=== PATIENT | female | born 1945 | race Caucasian/White ===

== ENCOUNTER → 2021-05-23 10:00 | Outpatient (CLI) | payer OTHER, SELFPAY ==
[2021-05-23 11:50] LABS: COVID19 -Nasal RAPID Negative (Negative)
== END ==
PROVIDERS: PCP Internal Medicine; Visit Provider Physician Assistant
DX: Z01.812 Encounter for preprocedural laboratory examination (principal); Z20.822 Contact with and (suspected) exposure to COVID-19
CPT/HCPCS: 87635

== ENCOUNTER 2021-05-24 10:40 | Day surgery (SDC) | payer OTHER, SELFPAY ==
[2021-05-19 09:53] VITALS: BMI 20.5
[2021-05-24] VITALS (12 sets, daily range): BP systolic 100–149; BP diastolic 50–82; PULSE 72–87; RESP 12–19; TEMP 35.7–37.3; O2SAT 97–100; BMI 20.5
[2021-05-24] MEDS: CELECOXIB 200 MG CAPSULE PO (11:32)
[2021-05-24] MEDS: ACETAMINOPHEN 325 MG TABLET 975 MG PO (11:32)
[2021-05-24] MEDS: LACTATED RINGERS 1,000 ML 42 ML IV ×2 (11:35→16:28)
--- NOTE | 2021-05-24 13:08 | SUR.PREOP ---
Pt updated on surgical delay. Assisted up to BR. Warm blankets given.
--- NOTE | 2021-05-24 14:00 | DI.RAD.S_ITS ---
PROCEDURE: XR HIP W PEL IF DONE LT 2V INDICATIONS: INNER OP HIP L TECHNIQUE: 2 intraoperative fluoroscopic images of the hip acquired. COMPARISON: [facility], [place], XR PELVIS WITH LATERAL HIP LEFT, 02/09/2021, 14:45. FINDINGS: Intraoperative fluoroscopic images of left hip shows left total hip arthroplasty with anatomic left hip alignment. IMPRESSION: Fluoro guidance was provided intraoperatively for left total hip arthroplasty. Dictated by: Lisandro Dong M.D. on 05/24/2021 at 17:20 Approved by: Lisandro Dong M.D. on 05/24/2021 at 17:21
--- NOTE | 2021-05-24 14:00 | PM.PREOP ---
Pre-operative Note COVID-19 COVID-19 status: Negative Interval Note History & Physical reviewed/Exam performed by Physician: Yes Changes to H&P: No
--- NOTE | 2021-05-24 14:01 | P.OP_ITS ---
Operative Date/Time/Diagnoses Date of procedure: 05/24/21 Time of procedure: 14:45 Pre-op diagnosis: left hip OA Post-op diagnosis: same Procedure & Clinicians Procedure: Left total hip anterior approach Same procedure as scheduled: Yes Indications: The patient has had progressively worsening left hip pain with radiographic changes consistent with arthritis. Non-operative management has failed and the patient has requested total hip replacement. The risks, benefits and alternatives to surgery were discussed with the patient prior to proceeding. Risks discussed included, but were not limited to, failure to relieve pain, leg length discrepancy, dislocation, stiffness, infection, nerve damage, deep venous thrombosis, pulmonary embolism, stroke, coma, heart attack, permanent paralysis and , as well as the potential need for eventual revision of the prosthetic. Surgeon: Leah Bustamante [employer] Teacher: Jorge Guerra Anesthesia Type: General and Spinal Operative Notes Findings: Soft bone, adequate stability Closure Type: primary Specimen(s): none sent Prosthetic devices, grafts, tissues, transplants, or devices: Bustamante and nephew standard anthology size 6, R3 52mm cup, 36 by-3 oxinium head Estimated Blood Loss (mL): 300 Blood products transfused: none Procedure in detail: The patient was brought to the operating room. Patient was carefully positioned in the supine position. Time-out was performed and antibiotics were given. Anesthesia was induced. She was positioned in the on the table in order to allow hyperextension of the hip. The left lower extremity was prepped and draped in a standard sterile fashion. An anterior left hip incision was made 1 fingerbreadth lateral to the anterior superior iliac spine and extended distally towards the greater trochanter. Dissection was carried out through skin and subcutaneous tissues. Superficial hemostasis was achieved. The fascia over the tensor fascia tank was defined and incised with a knife. Two Allis clamps were used to grasp the fascia. Tensor fascia tank was retracted laterally. A gelpi retractor was placed. Dissection was carried out down along the neck. The circumflex vessels were carefully identified and cauterized with the Bovie. There was good visualization of the femoral neck. A Cobra was placed superior to the neck and the gluteus fibers were carefully stripped from that superior aspect of the capsule. A 2nd retractor was placed along the inferior aspect of the neck. The rectus insertion along the capsule was partially released. A 3rd retractor that was then gently placed over the rim of the acetabulum under the rectus. Capsule was carefully incised and released from the intertrochanteric line circumferentially superior to the mid sagittal line and inferiorly to the mid sagittal line until the lesser trochanter was palpable. A tag stitch was placed both in the superior and inferior limb of the capsular insertion. Along the acetabulum capsule was also released up to the mid sagittal 12:00 position. A portion of the labrum was resected. A saw was used to perform an osteotomy at the level of the intertrochanteric line and the junction of the superior femoral neck leaving approximately 1 finger breath of residual inferior neck above the lesser trochanter. A 2nd cut was made along the femoral neck at the base of the head and a napkin ring of neck was removed. Corkscrew was placed in the femoral head and the head was removed without difficulty. Retractors were then repositioned around the acetabulum. Residual labrum was resected and additional osteophytes were removed. A reamer that was 4 mm below the templated size was placed by hand in the acetabulum and it was reamed to centralize the acetabulum. It was then reamed up to 2 under the templated size and fluoroscopy was brought in to c onfirm the position of the reaming and depth of reaming. I reamed 1 under the anticipated size. A trial cup was placed and noted that it was appropriately sized and fluoroscopy confirmed position and depth. The component was open and inserted without difficulty fluoroscopic imaging was used to confirm that the cup had been adequately seated and was well positioned. It was further stabilized with a single screw. Neutral poly liner was placed. The cup was tested and noted to be stable. Attention was then directed to the femur. The femur was gently hyperextended additional capsular release was performed as needed in order to allow adequate visualization of the proximal femur with elevation of the femur. Patient was placed in a hyperextended slightly adducted position with maximum external rotation. Box osteotome was used to check for any residual neck as well as sclerotic bone along the trochanter. [place]den pepper was placed in the femur. Additional broaching was performed. Canal finder was used to determine the alignment of the canal and position. Size 1 broach was placed. The canal was then appropriately broached up to the templated size as long as there was adequate stability of the broach and serial advancement of the broach without excessive impingement. Specific attention was directed at avoiding varus attempting to direct the distal aspect of the broach more anteriorly and avoiding excessive anteversion. Trial reduction showed acceptable range of motion, good stability, no posterior impingement, episcopalian of leg length and appropriate lateral shuck. I also hyperflexed the hip and checked that there was no impingement anteriorly and there was good stability with flexion, adduction and internal rotation. Marcaine and Exparel were injected. The stem was placed without difficulty. Repeat trial reduction and x-ray showed acceptable overall position, length, and no evidence of the femoral fracture. Final head was placed. Wound was meticulously irrigated with normal saline. The hip was reduced and additional Exparel and Marcaine were injected. The capsule was closed with interrupted nonabsorbable sutures. The fascia of the tensor was closed with interrupted and running Vicryl. No drain was placed. Any tensor fascia tank muscle that appeared to be contused or injured which was a minimal amount was carefully resected. Capsule around the tensor was injected with Exparel and Marcaine. The skin was closed with barbed stitches for the subcutaneous tissue and skin. We also used surgical glue. The wound was dressed sterilely. Brief Betadine soak was also used and was meticulously irrigated with normal saline. Patient was transferred to recovery room in satisfactory condition. Complications: none Post-operative Condition: stable Disposition: Acute Care Plan for aftercare: The patient will be maintained on a standard total hip replacement protocol with weight bearing as tolerated and anterior hip precautions. The patient will receive Aspirin and sequential compression devices for DVT prophylaxis. The patient will be discharged home when safe for the home environment.
[2021-05-24] MEDS: TRANEXAMIC ACID 1,000 MG VIAL 1000 MG INJ (15:01)
[2021-05-24] MEDS: CEFAZOLIN 1 GM VIAL 2 GM IV ×2 (15:03→23:33)
--- NOTE | 2021-05-24 15:17 | SUR.OPER ---
Supine on padded [place] table with bilateral legs secured in padded positioning boots and suspended in positioning spars, operative leg in traction per surgeon. Head on one pillow. Arm on non-operative side secured on padded armboard <90 degrees abduction. Arm on operative side padded and resting across chest then secured with tape over sheet. Padded perineal post in place per surgeon.
[2021-05-24] MEDS: BUPIVACAINE 0.25% W/ EPI 30 ML VIAL 60 ML INJ (15:28)
[2021-05-24] MEDS: BUPIVACAINE LIPOSOME 266 MG/20 ML VIAL INJ (15:28)
[2021-05-24] MEDS: SODIUM CHLORIDE IRRIG SOLUTION 250 ML, POVIDONE-IODINE SPONGE STICKS 1 APPLIC IRR (15:31)
--- NOTE | 2021-05-24 16:00 | DI.RAD.S_ITS ---
PROCEDURE: XR HIP W PEL IF DONE LT 2V INDICATIONS: POST OP LEFT TOTAL HIP TECHNIQUE: AP pelvis and lateral view of the left hip acquired. COMPARISON: [facility], [place]AN, XR HIP W PEL IF DONE LT 2V, 05/24/2021, 16:03. FINDINGS: Bones: Patient is status post left hip arthroplasty, with hardware components in expected positions. The hip joint appears congruent. The visualized bony structures appear intact. Soft tissues: Overlying postoperative changes are noted. No suspicious soft tissue densities. IMPRESSION: Postop changes from left total hip arthroplasty with anatomic left hip alignment. Dictated by: Lisandro Dong M.D. on 05/24/2021 at 18:02 Approved by: Lisandro Dong M.D. on 05/24/2021 at 18:03
[2021-05-24] MEDS: LACTATED RINGERS 1,000 ML 125 ML IV (18:36)
[2021-05-24] MEDS: DICYCLOMINE 10 MG CAPSULE 20 MG PO (21:07)
[2021-05-24] MEDS: DOCUSATE 100 MG CAPSULE PO (21:07)
[2021-05-24] MEDS: ACETAMINOPHEN 325 MG TABLET 650 MG PO (21:08)
[2021-05-24] MEDS: IBUPROFEN 400 MG TABLET PO (21:08)
[2021-05-24] MEDS: ASPIRIN EC 81 MG TABLET PO (21:08)
[2021-05-24] MEDS: POLYVINYL ALCOHOL DROPS 1 DROPS EYE-BOTH (21:08)
--- NOTE | 2021-05-24 21:39 | PC.NURSE ---
Admit/Evening Shift Note- Patient arrived to room via bed from PACU at 1800. Patient alert and oriented and able to make needs known to staff. Oriented patient to bed and bed controls, room, phone, lights, menu, bathroom, and call mahan/TV remote. Admit questions done, home medicaions reviewed, physical assessment done, and skin check completed. No complaints of pain or discomfort at this time. No complainbts of N?V at this time. Patient agrees to call for assistance. Bed alarm activated. Call mahan and phone within reach. Will continue to monitor.
[2021-05-25 00:41] VITALS: TEMP 36.4
[2021-05-25] MEDS: IBUPROFEN 400 MG TABLET PO ×3 (00:44→13:04)
[2021-05-25] MEDS: LACTATED RINGERS 1,000 ML 125 ML IV (02:04)
[2021-05-25 04:00] VITALS: BP 104/54; PULSE 60; RESP 18; TEMP 36.3; O2SAT 99
[2021-05-25 05:47] LABS: Hematocrit 34.9 % (36-46); Hemoglobin 11.6 g/dL (12.0-16.0)
[2021-05-25] MEDS: CEFAZOLIN 1 GM VIAL 2 GM IV (06:49)
[2021-05-25 08:27] VITALS: BP 117/69; PULSE 80; RESP 16; TEMP 36.7; O2SAT 100
[2021-05-25] MEDS: ACETAMINOPHEN 325 MG TABLET 650 MG PO ×2 (09:47→13:03)
[2021-05-25] MEDS: hydroCHLOROthiazide 25 MG TABLET 12.5 MG PO (09:48)
[2021-05-25] MEDS: DOCUSATE 100 MG CAPSULE PO (09:48)
[2021-05-25] MEDS: LORATADINE 10 MG TABLET PO (09:48)
[2021-05-25] MEDS: ASPIRIN EC 81 MG TABLET PO (09:49)
[2021-05-25] MEDS: DICYCLOMINE 10 MG CAPSULE 20 MG PO (09:49)
[2021-05-25] MEDS: LOSARTAN 25 MG TABLET PO (09:55)
--- NOTE | 2021-05-25 10:00 | PT.IIE ---
Current Diagnoses Unilateral primary osteoarthritis, left hip (05/24/21) Surgery Performed Operation Date: 05/24/21 13:00 Actual Procedures p Total Hip Arthroplasty/Anterior Approach(Left) - Leah Bustamante MD Medical History (Last Updated 05/19/21 @ 10:15 by Zoe Hansen RN) Cataracts, bilateral Diverticulosis Elevated liver enzymes Hemorrhoids HTN (hypertension) IBS (irritable bowel syndrome) Osteoarthritis Seasonal allergies Physical Therapy Inpatient Evaluation/Re-Eval M1 PT/OT-IP Prior Functional Status Start: 05/25/21 11:42 Freq: NEEDED Status: Active Protocol: Document 05/25/21 10:00 AB (Rec: 05/25/21 12:01 AB [email or web address]) Medical Review Prior Functional Status Medical History Reviewed Yes Communication able to make needs known Mobility and Gait pt stated that she is independent with all mobilities and ambulation without AD but occasionally uses a SPC for the past 2 years due to hip pain Social History Household Members none Living Arrangements House Number of Floors (Floors) Two Floors Number of Stairs To Enter/Railing? 18 platform steps without rails + 4 steps without rails to enter from the front 15 steps R rail from the garage to main level of the house Home Environment High Toilet,Walk in Shower Home Equipment Front Wheel Walker,Straight Cane,Shower Seat with Backrest ,Hand Held Shower,Grab Bars In Shower Additional Social History Comment pt stated that her sister/ [id number] will be staysing with her for a few days to assist her (3-4 days) and will have friends to assist her as needed afterwards M2 PT-IP Current Condition Start: 05/25/21 11:42 Freq: NEEDED Status: Active Protocol: Document 05/25/21 10:00 AB (Rec: 05/25/21 12:01 AB [email or web address]) Physical Therapy Current Condition Current Condition Evaluation Date 05/25/21 Treatment Diagnosis L LE anterior approach; difficulty in walking Onset Date 05/24/21 Precautions Anterior Hip Precautions No Hip Extension,No Hip External Rotation Weight Bearing Status Weight Bearing Status Weight Bear as Tolerated Allowed Weight Bearing Amount (enter % LLE WBAT or #) (%) M3 PT-IP Subjective Start: 05/25/21 11:42 Freq: NEEDED Status: Active Protocol: Document 05/25/21 10:00 AB (Rec: 05/25/21 12:01 [email or web address]) Subjective Physical Therapy Visit Type Type Initial Evaluation Visit Start Time 10:00 Visit Stop Time 11:11 Total Visit Minutes 71 Number of PLATFORM SOFTWARE ENGINEER Visits 0 Physical Therapy Visit Comments Patient Comments pt is agreeable to do PT Therapy Pain Assessment Pain When Pain Assessed At Rest Pain Present Pain Present Pain Reported Location Left Ribs Intensity 1 Scale Used Numeric (0 - 10) Pain Management Techniques Modification of Treatment,Re- positioning,Timing of Activity with Medications M4 PT-IP Mobility and Gait Start: 05/25/21 11:42 Freq: NEEDED Status: Active Protocol: Document 05/25/21 10:00 AB (Rec: 05/25/21 12:01 [id number]) PT-Bed Mobility Assessment Supine to Sit Supine to Sit Standby Assistance Sit to Supine Sit to Supine Standby Assistance PT-Transfer Assessment Sit to and From Stand Sit to and from Stand Standby Assistance Equipment Transfer Assistive Device Gait Belt,Front Wheeled Walker Orthotic/Prosthetic Devices or Brace: No Transfers Transfer Destination Bed,Chair Transfer Technique ambulated Transfer Ability Level of Assist Standby Assistance,1 Person Assistance,Use of Upper Extremities Comments Mobility Comments educated pt on anterior hip precautions. initially requiring cues to recall but able to remember afterwards. completed sit to stand sBA and ambulated towards the bed using FWW SBA ~ 12 ft. completed sit<>supine SBA and cues for techniques. completed sit to stand SBA and ambulated ~ 250 ft using FWW SBA. completed up/down platform step x 6 reps using FWW SBA to CGA and then completed up/ down steps using SPC CGA to min A. pt then stated that she may be able to get into the house from the garage and has 15 steps with R rail. completed up/down steps with pt holding on to R rail with B hands SBA to CGA. pt ambulated back to her room using FWW SBA ~ 250 ft. sat on chair. reviewed precautions and techniques with ambulation, stair climbing, bed mobility and shower transfers. pt stated that her sister will be able to assist her and she can direct her. requested a shower and NAC informed. Left pt witih NAC. Gait Assessment Gait Gait Assistance Required: Standby Assistance Distance (Feet) 250 Able to Maintain Weight Bearing Status Yes During Gait Assistive Devices Assistive Device Gait Belt,Front Wheeled Walker Orthotic/Prosthetic Devices or Brace: No Gait Deviations General Gait Pattern Decreased Stride Length, Decreased Feet Clearance Factors Limiting Gait Function Factors Limiting Gait Function Decreased Activity Tolerance, Decreased Strength,Limited Range of Motion,Pain,Poor Balance Stair Climbing Assessment Evaluation Level of Assist On Stairs Standby Assistance,Contact Guard Assistance Devices Stair Climbing Assistive Devices Straight Cane,Right Railing Technique/Endurance Stair Climbing Direction Ascend and Descend Stair Climbing Technique Step to Step Number of Steps Climbed 3 Query Text: Stair Climbing Set # Repetitions (reps) 2 Comments Stair Climbing Comments pls refer to mobility section for details PT-Balance Assessment Sitting Balance and Reactions Static Sitting Balance Ability Normal Dynamic Sitting Balance Ability Normal Standing Balance and Reactions Static Standing Balance Ability Good Dynamic Standing Balance Ability Fair Device Used FWW M5 PT-IP Objective Assessments Start: 05/25/21 11:42 Freq: NEEDED Status: Active Protocol: Document 05/25/21 10:00 AB (Rec: 05/25/21 12:01 [email or web address]) Orientation Orientation/Cognition Level of Alertness Alert Orientation Name,Place,Situation Language Function Ability No Deficits Noted Safety Awareness Understands Safety Issues Memory Description No Deficits Noted Gross Range of Motion Lower Extremity ROM Assessment Within Functional Limits Strength Lower Extremity Strength Assessment Left Impaired Hip 3+/5 Knee 4-/5 Coordination Assessment Gross Coordination Gross Coordination WNL Sensation Assessment Sensation Gross Sensation WNL Muscle Tone Muscle Tone WNL Yes M6 PT-IP Treatment Start: 05/25/21 11:42 Freq: NEEDED Status: Active Protocol: Document 05/25/21 10:00 AB (Rec: 05/25/21 12:01 [email or web address]) Physical Therapy Treatment Education Education Provided Precautions,Weight Bearing Status,Post-Op Packet,Safety M7 PT-IP Assessment and Plan Start: 05/25/21 11:42 Freq: NEEDED Status: Active Protocol: Document 05/25/21 10:00 AB (Rec: 05/25/21 12:01 [email or web address]) PT Summary Assessment and Plan Potential Rehabilitation Potential Good Status of Condition at Evaluation Stable Summary Impairments Pain,ROM,Strength,Balance, Coordination,Sensation,Tone, Cognition,Bed Mobility, Transfers,Gait,Activity Tolerance Assessment Summary pt requiring SBA with mobility , SBA to CGA with stair climbing. pt plans to go home and her sister will be able to assist her for the first few days and then friends to assist afterwards as needed. pt is set up for outpt PT. pt may go home when medically stable. Goals Bed Mobility Goal Independent Transfer Goal Independent,Front Wheeled Walker Gait Goal Independent,Front Wheel Walker Gait Distance 300 Other Goals up/down 15 steps R rail mod I Days to Meet Goals 3 Frequency of Treatment Frequency Of Treatment Twice a Day Treatment Plan Physical Therapy Treatment Plan Bed Mobility Training,Transfer Training,Gait Training, Therapeutic Exercise,Balance Retraining,Post Op Education, Discharge Planning,Hot or Cold Pack,Neuromuscular Re-ed, Coordination Retraining,Manual Therapy Precautions Anterior Hip Precautions No Hip Extension,No Hip External Rotation Other Precautions WBAT LLE Recommendations To Nursing Amount of Assist Needed Standby Assistance Discharge Recommendations PT Discharge Recommendations Home with Assistance, Outpatient PT Transportation Needs at Discharge Private Vehicle
--- NOTE | 2021-05-25 16:42 | PC.NURSE ---
Discharge: Pt feels ready to d/c home. Seen by PA and given instructions. Seen by PT and given their instructions. Reviewed d/c packet and given rx's. Questions answered. Tolerates diet w/out problems, vds w/out diff. Pain is in control.
--- NOTE | 2021-05-25 17:58 | CM.DANOTE ---
DCP/Assessment: Reviewed chart. Patient is a 76yr old female admitted [facility] for left LE performed on 05-25-[address] Bustamante. PCP is Dr. Rahman. Primary payor is 1)[facility]. Met with patient this AM explained CM/SW role. Patient reports that she plans to go home today. Patient reports that she has all needed DME and outpatient therapy set up through [facility]. P: Home when medically stable. GAGAN Kaur
== END 2021-05-25 13:30 | disposition home or self-care (01) ==
LOC: OR 10:42 → AC 10:42
PROVIDERS: PCP Internal Medicine; Referring Provider Orthopaedic Surgery; Visit Provider Orthopaedic Surgery
PROC: (CPT 27130; principal; 2021-05-24 13:00)
DX: M16.12 Unilateral primary osteoarthritis, left hip (principal); I10 Essential (primary) hypertension
CPT/HCPCS: 27130; 36415; 73502; 76000; 85014; 85018; 94762; 97116; 97161; 97530; C1776; C9290; J0690; J2250; J2274; J3010

== ENCOUNTER 2025-06-30 06:24 | Day surgery (SDC) | payer OTHER, SELFPAY ==
[2021-05-24 19:53] VITALS: BMI 20.5
--- NOTE | 2025-06-30 | PATH_ITS ---
[facility] Accession Number: [id number] No. of containers..01 Tissue . 01 Material submitted: . stomach - ANTRAL . 01 Diagnosis: A: GASTRIC ANTRUM, BIOPSY: Gastric antrum with focal minimal chronic inactive gastritis. Negative for helicobacter organisms on H/E and immunostain sections, see comment. Negative for intestinal metaplasia, dysplasia, or malignancy. [facility] 07/09/2025 1241 Local . 01 Comment: An immunohistochemical stain was performed to evaluate for Helicobacter organisms and is NEGATIVE. The control stain was adequately reactive. Technical Note: The immunohistochemical stains reported were performed at [facility] ([address], [facility] [address]). They were developed and their performance characteristics determined by [employer] They have not been cleared or approved by the U.S. Food and Drug Administration, although such approval is not required for analyte-specific reagents of this type. . 01 Electronically signed: . Joie Salas MD, Pathologist NPI- [id number] . 01 Gross description: . Received in formalin with two identifiers and 1-Antral biopsy. The specimen consists of prado-white soft tissue fragments measuring 0.3 x 0.3 x 0.3 cm and 0.3 x 0.2 x 0.1 cm. The specimen is entirely submitted in cassette A1. ([id number]) /MRV 07/07/2025 1450 Local . 01 Pathologist provided ICD-10: K21.9, R10.9 . 01 CPT . 981385, [id number] Specimen Comment: A courtesy copy of this report has been sent to [facility] Pathology Performed at: [address] [facility] [facility] [address] [address] [address], [place], [place] [id number] MD Yo Acevedo MD Phone: [phone]
[2025-06-30 06:58] VITALS: BP 151/76; PULSE 79; RESP 16; TEMP 36.5; O2SAT 99
[2025-06-30] MEDS: LACTATED RINGERS 1,000 ML 42 ML IV (07:16)
--- NOTE | 2025-06-30 07:45 | PM.HP.IH.1 ---
History of Present Illness History of Present Illness Date Patient Seen: 06/30/25 Time Patient Seen: 07:45 Chief complaint: EGD Narrative: 80yo F, presents for EGD today. Seen in office with abd pain unclear etiology, GERD. [facility] Medical History (Updated 04/27/25 @ 14:05 by Bob Polo MD) Osteoarthritis Elevated liver enzymes Hemorrhoids Diverticulosis IBS (irritable bowel syndrome) HTN (hypertension) Seasonal allergies Cataracts, bilateral Surgical History (Updated 05/19/21 @ 10:15 by Zoe Hansen RN) Hx of colonoscopy with polypectomy Hx of colonoscopy Social History household members: none Smoking Status: Never smoker alcohol intake: never Meds Home Medications and Allergies Home Medications ?Medication ?Instructions ?Recorded ?Confirmed ?Type dicyclomine 20 mg tablet 20 mg PO TID IBS 05/19/21 04/27/25 History hydrochlorothiazide 12.5 mg tablet 12.5 mg PO DAILY 05/19/21 04/27/25 History losartan 25 mg tablet 25 mg PO DAILY 05/19/21 04/27/25 History valacyclovir 1 gram tablet 1,000 mg PO BID PRN Breakout 05/19/21 04/27/25 History (Valtrex) alendronate 70 mg tablet 70 mg PO QWEEK 04/27/25 04/27/25 History hyoscyamine sulfate 0.125 mg tablet 0.125 mg PO BID-QID PRN 04/27/25 04/27/25 History lidocaine HCl 2 % mucosal jelly 1 applic topical BID 04/27/25 04/27/25 History Allergies Allergy/AdvReac Type Severity Reaction Status Date / Time No Known Drug Allergies Allergy Verified 06/30/25 06:56 Exam Vital Signs (past 8 hours): - 06/30/25 06:58 Temperature 97.7 F Pulse Rate 79 Respiratory Rate 16 Blood Pressure 151/76 H Pulse Oximetry 99 Oxygen Delivery Method Room Air Oxygen Delivery Method Room Air Const General: healthy appearing and comfortable Orientation: alert and oriented x3 Resp Effort & Inspection: normal respiratory effort and able to speak in complete sentences Auscultation: clear to auscultation bilaterally Cardio Rate: regular rate Rhythm: regular rhythm GI Palpation: soft (NT) Extrem General: no pedal edema and no calf tenderness Assessment & Plan Assessment and plan (1) GERD (gastroesophageal reflux disease): Qualifiers: Esophagitis presence: esophagitis presence not specified Qualified Code(s): K21.9 - Gastro-esophageal reflux disease without esophagitis Status: Acute (2) Abdominal pain: Qualifiers: Abdominal location: generalized Qualified Code(s): R10.84 - Generalized abdominal pain Status: Acute Plan EGD/biopsy. The risks, benefits and options regarding the procedure were explained to the patient in detail. Risk discussion included but not limited to: bleeding, perforation, missed lesion. The patient was encouraged to ask questions and they were answered to their satisfaction. The patient understands and is agreeable to proceed. Time-Based Coding :: [TOTAL MINUTES] spent with patient and on the chart (including review of chart, obtaining history, exam, reviewing outside data, placing orders, documenting exam and treatment plan, and counseling patient) on [DATE]. PROFEE Helper Driver Document charge(s): Yes Charge Codes Inpatient/observation care including admit and discharge same day: [id number]
--- NOTE | 2025-06-30 07:51 | P.OP.EGD_ITS ---
Operative Date/Time/Diagnoses Date of procedure: 06/30/25 Time of procedure: 08:10 Pre-op diagnosis: GERD, abdominal pain Post-op diagnosis: other (mild antral gastritis) Procedure & Clinicians Study performed: EGD with biopsy Same procedure(s) as scheduled: Yes Indications: 80yo F, h/o GERD, abd pain unclear etiology Surgeon: Bob Polo Anesthesia Type: MAC +/- Procedure Notes SCOAP/Timeout: Performed Procedure in detail: EGD Informed consent was obtained. The procedure, its risks, benefits, and alternatives were discussed. Patient understood and agreed to proceed. The patient was placed in the left lateral decubitus position with head elevated. Sedation given per anesthesia. The video endoscope was inserted into the oropharynx and guided under direct vision into the esophagus, stomach, and duodenum which were carefully examined. The scope was retroflexed to examine the hiatus and gastroesophageal junction. Antral biopsies were obtained for Marjan cobacter pylori. The patient tolerated the procedure very well. There were no apparent complications. Significant EGD findings: Z-line noted at: 40cm Mild antral gastritis, biopsies taken for hpylori No ulcers, erosions, masses, strictures Duodenum normal D1,D2 Esophagus normal, no esophagitis, no hiatal hernia Findings: gastritis Specimen(s): other (antral biopsies) Complications: none Impression: Antral gastritis Post-procedure Recommendations: Will call with biopsy results Plan for aftercare: PACU then home OTC PPI daily Follow up: as needed Disposition: PACU
[2025-06-30 08:09] VITALS: BP 117/65; PULSE 75; RESP 15; TEMP 36.7; O2SAT 98
[2025-06-30 08:18] VITALS: BP 140/79; PULSE 75; RESP 18; TEMP 36.6; O2SAT 97
== END 2025-06-30 08:38 | disposition home or self-care (01) ==
PROVIDERS: PCP Internal Medicine; Referring Provider Surgery; Visit Provider Surgery
PROC: 0DJ08ZZ Inspection of Upper Intestinal Tract, Via Natural or Artificial Opening Endoscopic (ICD-10-PCS; CPT 43239; principal; 2025-06-30 07:45)
DX: R10.9 Unspecified abdominal pain (principal); K21.9 Gastro-esophageal reflux disease without esophagitis; K29.50 Unspecified chronic gastritis without bleeding
CPT/HCPCS: 43239; J2704